=== PATIENT | female | born 1965 | race Caucasian/White ===

== ENCOUNTER 2017-03-29 05:12 | Emergency (ER) | payer BC ==
[~2017-03-29] VITALS: Ht 177.8 cm; Wt 68.0 kg
--- NOTE | 2017-03-29 05:23 | Emergency Room Report ---
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 PT C/O NAUSEA, WITH 2 EPISODES OF VOMITING. PT RECEIVED 50 MCG FENTANYL AND 4 MG ZOFRAN, 500 ML NS PER EMS. PT RPTS MINIMAL PAIN OR NAUSEA RELIEF. PT ALSO TOOK A VICODIN AT HER HOUSE BEFORE EMS ARRIVAL, FROM A TOOTH EXTRACTION 2 WEEKS AGO. PT A & O X 4. 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 N Clinical Suspician of Infection? N Mental Status: 1 - Regular (Normal Baseline) Sepsis Risk:Low Sepsis Risk Have you (or family members/close friends) recently traveled outside the [place]? N If Yes, where/when: Have you had exposure to infectious disease within the past month? N TB? Other? Specify: Source patient, RN notes reviewed, family, old records Exam Limitations no limitations Comment acute onset of rt flank pain brought by ems Cardiac Chest Pain Chest pain indicative of cardiac No Timing/Duration this evening Severity moderate ALLERGIES Coded Allergies: No Known Allergies (03/29/17) Home Medications Reported Medications No Known Home Medications History Medical History General CAD? No Angina: No [place]: No Hypertension? No Hyperlipidemia? No CHF? No DVT? No PE? No COPD? No Asthma? No Anemia? No GERD? No Gastric ulcers? No GI Bleed? No Hernia? No Thyroid Problems? No Hypothyroidism? No CVA? No Seizures? No Diabetes? No Renal Insuffiency? No End Stage Renal Disease? No UTI? No Stones? Yes BPH? No GB Disease: No Nephritic Syndrome? No Asplenia? No Hepatitis? No Sickle Cell Disease? No Arthritis? No Migraines? No Cataracts? No Glaucoma? No MRSA? No HIV? No TB? No Anxiety? No Depression? No Cancer? No More? 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 Respiratory denies cough Cardiovascular denies syncope Gastrointestinal denies abdominal pain, denies vomiting Genitourinary see HPI. denies: dysuria, frequency, hesitancy, hematuria. Musculoskeletal denies back pain, denies joint pain, denies neck pain Skin denies rash Psychiatric/Neurological denies headache, denies seizure Physical Exam Vital Signs Vital Signs Date Time Temp Pulse Resp B/P Pulse O2 O2 Flow FiO2 Ox Delivery Rate 03/29 0714 84 18 144/73 99 03/29 0639 79 18 118/69 100 03/29 0600 18 / 0558 98.1 68 18 118/74 100 03/29 0514 98.1 75 18 134/76 98 - WBC >12,000 or <4,000 or 10% bands? 2 or more SIRS Criteria Met? B/P:144/73 MAP:95 Creatinine >2.0? UA output<0.5ml/kg/hr for 2 hrs? Platelet count >100,000? Lactate >2.0mmol/1? INR >1.2 or PTT > than 60 sec? Evidence of Organ Dysfunction? Provider documented clinical suspician of infection? N Sepsis Criteria Count: 0 Sepsis Risk: Low Sepsis Risk General Appearance no apparent distress Eye Exam - bilateral eye PERRL, bilateral eye EOMI Ear, Nose, Throat normal ENT inspection Neck supple Respiratory Status No: respiratory distress. 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 No Results/Orders Laboratory Tests 03/29/17 0529: Sodium 141, Potassium 3.9, Chloride 107, Carbon Dioxide 25, BUN 15, Creatinine 1.0, Estimated Creat Clear 72, Estimated GFR (MDRD) 59, Glucose 147 H, Calcium 8.1 L, Total Bilirubin 0.2, AST 12 L, ALT 16, Alkaline Phosphatase 53, Total Protein 6.6, Albumin 3.2 L, Globulin 3.4 H, Albumin/Globulin Ratio 0.9 L, WBC 7.7, RBC 3.89 L, Hgb 9.0 L, Hct 30.4 L, MCV 78.2 L, RDW 14.5, Plt Count 300, MPV 6.4 L, Gran % 83.0 H, Gran # 6.4, Lymphocytes % 12.0, Monocytes % 3.5, Eosinophils % 1.1, Basophils % 0.3, Lymphocytes # 0.9, Monocytes # 0.3, Eosinophils # 0.1, Basophils # 0.0, PUBS MCHC 29.6 L, MCH 23.1 L, Urine Color RED, Urine Appearance TURBID, Urine pH 5.5, Ur Specific [place] >= 1.030, Urine Protein 1+ H, Urine Ketones NEGATIVE, Urine Blood 3+ H, Urine Nitrate NEGATIVE , Urine Bilirubin NEGATIVE, Urine Urobilinogen 0.2, Ur Leukocyte Esterase NEGATIVE, Urine RBC TNTC, Urine WBC 3-5, Ur Squamous Epith Cells 3-5, Urine Glucose NEGATIVE Current Medication Orders Sig/Ascencion Start time Last Medication Dose Route Stop Time Status Admin Ketorolac 0 .STK-MED ONE 03/29 0556 DC Tromethamine .ROUTE Ketorolac 30 MG ONCE ONE 03/29 530 DC 03/29 Tromethamine IV 03/29 531 0600 Sodium Chloride 10 ML PRN PRN 03/29 530 AC IV 03/30 516 Orders Procedure Date/time Status DIET-NOTHING BY MOUTH 03/[address] ABD & PELVIS W/O CONTRAST 03/[address] SCAN REQ 03/29 517 Active IV SALINE LOCK 03/29 517 Active URINALYSIS/COMPLETE 03/29 517 Complete COMPLETE METABOLIC PANEL 03/29 517 Complete CBC WITH AUTO DIFF 03/29 517 Complete XRAY/CT/US XRAY/CT/US CT abdomen, pelvis CT interpretation by discussed w/radiologist Time results known: 717 CT Results abnormal ( 2 mm stone ) Departure Departure Time of Disposition 717 Disposition DC Home or Self Care(routine) Clinical Impression Primary Impression: Renal colic on right side Secondary Impressions: Anemia Qualifiers: Anemia type: unspecified type Qualified Code: D64.9 - Anemia, unspecified Condition STABLE Referrals [facility] ALEXANDER (Family) Patient Instructions DI for Kidney Stones Additional Instructions fluids and see pcp for follow up Discharge Counseling Counseled pt/family regarding diagnosis, test results, follow up needs Prescriptions Current Visit Scripts HYDROCODONE/ACETAMINOPHEN ([place] 5-325 Tablet) 1 TAB PO Q6HP PRN pain #10 TAB ED Critical Care Critical Care No at 0748
--- NOTE | 2017-03-29 05:23 | Emergency Room Report ---
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 PT C/O NAUSEA, WITH 2 EPISODES OF VOMITING. PT RECEIVED 50 MCG FENTANYL AND 4 MG ZOFRAN, 500 ML NS PER EMS. PT RPTS MINIMAL PAIN OR NAUSEA RELIEF. PT ALSO TOOK A VICODIN AT HER HOUSE BEFORE EMS ARRIVAL, FROM A TOOTH EXTRACTION 2 WEEKS AGO. PT A & O X 4. 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 N Clinical Suspician of Infection? N Mental Status: 1 - Regular (Normal Baseline) Sepsis Risk:Low Sepsis Risk Have you (or family members/close friends) recently traveled outside the [place]? N If Yes, where/when: Have you had exposure to infectious disease within the past month? N TB? Other? Specify: Source patient, RN notes reviewed, family, old records Exam Limitations no limitations Comment acute onset of rt flank pain brought by ems Cardiac Chest Pain Chest pain indicative of cardiac No Timing/Duration this evening Severity moderate ALLERGIES Coded Allergies: No Known Allergies (03/29/17) Home Medications Reported Medications No Known Home Medications History Medical History General CAD? No Angina: No [place]: No Hypertension? No Hyperlipidemia? No CHF? No DVT? No PE? No COPD? No Asthma? No Anemia? No GERD? No Gastric ulcers? No GI Bleed? No Hernia? No Thyroid Problems? No Hypothyroidism? No CVA? No Seizures? No Diabetes? No Renal Insuffiency? No End Stage Renal Disease? No UTI? No Stones? Yes BPH? No GB Disease: No Nephritic Syndrome? No Asplenia? No Hepatitis? No Sickle Cell Disease? No Arthritis? No Migraines? No Cataracts? No Glaucoma? No MRSA? No HIV? No TB? No Anxiety? No Depression? No Cancer? No More? 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 Respiratory denies cough Cardiovascular denies syncope Gastrointestinal denies abdominal pain, denies vomiting Genitourinary see HPI. denies: dysuria, frequency, hesitancy, hematuria. Musculoskeletal denies back pain, denies joint pain, denies neck pain Skin denies rash Psychiatric/Neurological denies headache, denies seizure Physical Exam Vital Signs Vital Signs Date Time Temp Pulse Resp B/P Pulse O2 O2 Flow FiO2 Ox Delivery Rate 03/29 0714 84 18 144/73 99 03/29 0639 79 18 118/69 100 03/29 0600 18 / 0558 98.1 68 18 118/74 100 03/29 0514 98.1 75 18 134/76 98 - WBC >12,000 or <4,000 or 10% bands? 2 or more SIRS Criteria Met? B/P:144/73 MAP:95 Creatinine >2.0? UA output<0.5ml/kg/hr for 2 hrs? Platelet count >100,000? Lactate >2.0mmol/1? INR >1.2 or PTT > than 60 sec? Evidence of Organ Dysfunction? Provider documented clinical suspician of infection? N Sepsis Criteria Count: 0 Sepsis Risk: Low Sepsis Risk General Appearance no apparent distress Eye Exam - bilateral eye PERRL, bilateral eye EOMI Ear, Nose, Throat normal ENT inspection Neck supple Respiratory Status No: respiratory distress. 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 No Results/Orders Laboratory Tests 03/29/17 0529: Sodium 141, Potassium 3.9, Chloride 107, Carbon Dioxide 25, BUN 15, Creatinine 1.0, Estimated Creat Clear 72, Estimated GFR (MDRD) 59, Glucose 147 H, Calcium 8.1 L, Total Bilirubin 0.2, AST 12 L, ALT 16, Alkaline Phosphatase 53, Total Protein 6.6, Albumin 3.2 L, Globulin 3.4 H, Albumin/Globulin Ratio 0.9 L, WBC 7.7, RBC 3.89 L, Hgb 9.0 L, Hct 30.4 L, MCV 78.2 L, RDW 14.5, Plt Count 300, MPV 6.4 L, Gran % 83.0 H, Gran # 6.4, Lymphocytes % 12.0, Monocytes % 3.5, Eosinophils % 1.1, Basophils % 0.3, Lymphocytes # 0.9, Monocytes # 0.3, Eosinophils # 0.1, Basophils # 0.0, PUBS MCHC 29.6 L, MCH 23.1 L, Urine Color RED, Urine Appearance TURBID, Urine pH 5.5, Ur Specific [place] >= 1.030, Urine Protein 1+ H, Urine Ketones NEGATIVE, Urine Blood 3+ H, Urine Nitrate NEGATIVE , Urine Bilirubin NEGATIVE, Urine Urobilinogen 0.2, Ur Leukocyte Esterase NEGATIVE, Urine RBC TNTC, Urine WBC 3-5, Ur Squamous Epith Cells 3-5, Urine Glucose NEGATIVE Current Medication Orders Sig/Sacencion Start time Last Medication Dose Route Stop Time Status Admin Ketorolac 0 .STK-MED ONE 03/29 0556 DC Tromethamine .ROUTE Ketorolac 30 MG ONCE ONE 03/29 530 DC 03/29 Tromethamine IV 03/29 531 0600 Sodium Chloride 10 ML PRN PRN 03/29 530 AC IV 03/30 516 Orders Procedure Date/time Status DIET-NOTHING BY MOUTH 03/[address] ABD & PELVIS W/O CONTRAST 03/[address] SCAN REQ 03/29 517 Active IV SALINE LOCK 03/29 517 Active URINALYSIS/COMPLETE 03/29 517 Complete COMPLETE METABOLIC PANEL 03/29 517 Complete CBC WITH AUTO DIFF 03/29 517 Complete XRAY/CT/US XRAY/CT/US CT abdomen, pelvis CT interpretation by discussed w/radiologist Time results known: 717 CT Results abnormal ( 2 mm stone ) Departure Departure Time of Disposition 717 Disposition DC Home or Self Care(routine) Clinical Impression Primary Impression: Renal colic on right side Secondary Impressions: Anemia Qualifiers: Anemia type: unspecified type Qualified Code: D64.9 - Anemia, unspecified Condition STABLE Referrals [facility]UL[facility] ALEXANDER (Family) Patient Instructions DI for Kidney Stones Additional Instructions fluids and see pcp for follow up Discharge Counseling Counseled pt/family regarding diagnosis, test results, follow up needs Prescriptions Current Visit Scripts HYDROCODONE/ACETAMINOPHEN ([place] 5-325 Tablet) 1 TAB PO Q6HP PRN pain #10 TAB ED Critical Care Critical Care No at 0748
--- OUTSIDE RECORDS SUMMARY | 2017-03-29 05:26 | External Medical Summary Rpt ---
Author Author , Organization [employer] Address Unknown Phone Unavailable Purpose Continuity of Care Document - through 2016
--- OUTSIDE RECORDS SUMMARY | 2017-03-29 05:27 | External Medical Summary Rpt ---
Demographics Preferred Language Slovenian Marital Status Unknown Scientology Affiliation Unknown Race Unknown Ethnic Group Unknown Author Author , Organization [employer] Address Unknown Phone Unavailable Purpose Continuity of Care Document - through 2016 Immunization Unable to retrieve immunization data due to connection failure with Immunization Registry. Please try again later.
--- OUTSIDE RECORDS SUMMARY | 2017-03-29 05:27 | External Medical Summary Rpt ---
Author Author ROD[facility] Deluca, ROD[employer] Del[employer] Organization [employer] Address Unknown Phone Unavailable
--- OUTSIDE RECORDS SUMMARY | 2017-03-29 05:27 | External Medical Summary Rpt ---
Demographics Preferred Language Kyrgyz Marital Status Unknown Holiness Affiliation Unknown Race Unknown Ethnic Group Unknown Author Author , Organization [employer] Address Unknown Phone Unavailable Purpose Continuity of Care Document - through 2016 Immunization Unable to retrieve immunization data due to connection failure with Immunization Registry. Please try again later.
[2017-03-29 05:48] LABS: LYMPH # 0.9 K/mm3 (0.7-4.5); URINE BILIRUBIN - DIPSTICK NEGATIVE (NEG); URINE BLOOD 3+ (NEG)
[2017-03-29] MEDS ORDERED: NORCO 325 MG-51 TAB PO (07:48)
[2017-03-29 08:07] VITALS: BP 120/70
--- NOTE | 2017-03-31 07:18 | RADIOLOGY REPORT PS360 ---
CT ABD PELVIS W/O CONTRAST Ordering Physician: Alberto Gonsalez MD Patient Age: 51 years: Female HISTORY: RT FLANK PAINabdominal pain right flank right groin pain with nausea and vomiting TECHNIQUE: Helical CT scans abdomen and pelvis with no oral nor IV contrast. Sagittal coronal reconstructions on CT workstation. 76 CPT COMPARISON is made to previous CT abdomen pelvis February 13, 2010 FINDINGS Lower thorax appears clear minimal bibasilar atelectasis. Abdomen. Liver. Satisfactory residual generous right lobe 19.5 length. Gallbladder and bile ducts. Gallbladder is contracted no calcified stones. No ductal dilatation. Pancreas unremarkable. No lesions nor ductal dilatation. Spleen unremarkable. No significant findings moderate size 10 seem in length. SYSTEM: Kidneys and ureters.: Right hydronephrosis is secondary to a 2 mm stone at the right UVJ. There is scattered nonobstructive bilateral renal calculi.. Right Kidney.: Tiny less than 2 mm calculus midportion.. Hyperdense renal pyramids suggest tendency to form stones Left Kidney: punctate nonobstructive calculi more evident. 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 ... A 4.5 mm calculus most inferior calyx. ... The largest 6.7 x 4.5 mm calculus towards lower pole. ... A 4 mm calculus midportion . PELVIS. Uterus enlarged a likely with likely multiple underlying fibroids. It would appear to measure up to 11 cm length 7 cm AP over 8 cm wide. Blends in with the uterus particularly on the right. Suggest pelvic ultrasound GI TRACT: Moderate stool throughout colon. Small bowel satisfactory. Scattered small nodes in the mesentery similar to previous study. Small nodes along pelvic sidewall as well appear stable. No significant retroperitoneal adenopathy. Osseous. Degenerative disc changes and facet hypertrophy most evident L5/S1. IMPRESSION: 1. Obstructive uropathy on right.. Hydronephrosis with dilatation right ureter. 2 mm calculus at distal right ureter just above right UVJ. 2. 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 Progressive Enlarged likely fibroid uterus. Now measuring over 8 cm wide X 11 cm length 4.
== END 2017-03-29 08:08 | disposition home or self-care (01) ==
LOC: ER 05:12
PROVIDERS: Emergency Medicine
DX: N20.0 Calculus of kidney (principal); D64.9 Anemia, unspecified